=== PATIENT | female | born 1940 | race Hispanic/Latino ===

== ENCOUNTER → 2019-03-30 | Outpatient (CLI) | payer MEDICARE | END | disposition home or self-care (01) | LOC: RAH 15:39 | PROVIDERS: ATTEND Family Medicine | DX: I10 Essential (primary) hypertension (principal) | CPT/HCPCS: 71046 ==

== ENCOUNTER 2019-05-16 13:24 | Emergency (ER) | payer MEDICARE | END 2019-05-16 15:52 | disposition home or self-care (01) | LOC: EDH 13:24 | DX: S16.1XXA Strain of muscle, fascia and tendon at neck level, initial encounter (principal); I10 Essential (primary) hypertension; E11.9 Type 2 diabetes mellitus without complications; M19.90 Unspecified osteoarthritis, unspecified site; Z98.890 Other specified postprocedural states; S40.012A Contusion of left shoulder, initial encounter; V49.59XA Passenger injured in collision with other motor vehicles in traffic accident, initial encounter; Y93.89 Activity, other specified; Y92.410 Unspecified street and highway as the place of occurrence of the external cause; Y99.8 Other external cause status | CPT/HCPCS: 70450; 72125; 72128; 72131; 73030 ==

== ENCOUNTER → 2021-11-13 | Outpatient (CLI) | payer OTHER, MEDICARE ==
[~2021-11-13] MED LIST: LIDOCAINE HCL MPF 1% 5ML VIAL ONE
[2021-11-13 08:46] LABS: PROTHROMBIN TIME 10.9 SEC (9.6-11.6)
[2021-11-13 08:47] LABS: PARTIAL THROMBOPLASTIN TIME 27.4 SEC (26.3-35.5)
== END | disposition home or self-care (01) ==
LOC: RAH 07:45
PROVIDERS: ATTEND Otolaryngology
DX: E04.1 Nontoxic single thyroid nodule (principal); Z79.01 Long term (current) use of anticoagulants; Z79.899 Other long term (current) drug therapy
CPT/HCPCS: 10005; 36415; 85610; 85730; 88173; 88305; J3490 ×2

== ENCOUNTER → 2022-05-14 | Outpatient (CLI) | payer OTHER, MEDICARE | END | disposition home or self-care (01) | LOC: RAH 10:50 | PROVIDERS: ATTEND Otolaryngology | DX: E07.89 Other specified disorders of thyroid (principal); E04.1 Nontoxic single thyroid nodule | CPT/HCPCS: 76536 ==

== ENCOUNTER → 2025-02-18 | Outpatient (CLI) | payer OTHER, MEDICAID ==
--- NOTE | 2025-02-18 16:41 | HMCIMG ---
US THYROID/NECK HISTORY: Thyroid nodule COMPARISON: 05/14/2022 TECHNIQUE: Thyroid ultrasound study was performed. FINDINGS: Right thyroid lobe measures 4.2 x 1.3 x 1.4 cm. Left thyroid lobe measures 4 x 1.3 x 1.3 cm. There are bilateral thyroid nodules with the largest in the right lower pole measuring 2.3 x 2.2 x 2.3 cm not seen on previous study. There is left thyroid calcified nodule measuring 10 x 23 mm. Other bilateral subcentimeter thyroid nodules are again seen. IMPRESSION: 1. ) Right lower pole thyroid nodule measuring 2.3 x 2.2 x 2.3 cm not seen on previous study.
== END | disposition home or self-care (01) ==
LOC: RAH 15:10
PROVIDERS: ATTEND Student in an Organized Health Care Education/Training Program
DX: E04.2 Nontoxic multinodular goiter (principal)
CPT/HCPCS: 76536

== ENCOUNTER → 2025-06-29 | Outpatient (CLI) | payer OTHER, MEDICAID ==
[2025-06-29 10:02] LABS: INR <= 0.93 (0.85-1.15)
--- NOTE | 2025-06-29 11:45 | NUR ---
U/S GD BILATERAL THYROID FNA PROCEDURE PERFORMED BY DR Edda GILBERT. FIRST PUNCTURE SITE LT NECK. TWO SAMPLES COLLECTED AND PROCEDURE STOPPED DUE TO CALCIFIED NODULE. SECOND PUNCTURE SITE RT NECK WITH 4 SAMPLES COLLECTED. PATIENT TOLERATED PROCEDURE WELL. SPECIMEN X 6 COLLECTED AND SENT TO LAB. END OF PROCEDURE AT 1110. ASPIRATION NEEDLES REMOVED AND DRESSING APPLIED. NO BLEEDING NOTED. DISCHARGE INSTRUCTIONS GIVEN TO PATIENT AND VERBALIZED UNDERSTANDING. DISCHARGED VIA AMBULATION AT 1145. COLD PACK APPLIES TO PUNCTURE SITES. AAO X3 WITH NO C/O PAIN.
--- NOTE | 2025-06-30 08:53 | HMCIMG ---
PROCEDURE: Ultrasound-guided right and left thyroid lobe thyroid nodule fine needle aspiration; dated 06/29/2025 INDICATION: Right and left thyroid nodule nodules. STAFF: Sylwia RESIDENT: GASPER Reynolds ANESTHESIA: Local, 1% lidocaine plain FINDINGS: Informed consent was obtained. Patient was placed in the supine position prepped and draped in the usual sterile fashion. Under ultrasound guidance, the right thyroid nodule was localized. Local anesthetic was applied using 1% plain lidocaine. The nodule measured 2.3 x 2.2 x 2.3 cm maximum dimensions and appears heterogeneously heterogeneous. Fine needle aspiration using coaxial technique with an 18 gauge introducer needle and a 22-gauge aspiration needle was performed under ultrasound guidance. 4 passes were made and reviewed directly by the pathology tech, who confirmed adequate cytology. The patient tolerated the procedure well. SPECIMEN: 4 FNA passes, reviewed by pathology collector Under ultrasound guidance, the left thyroid nodule was localized. Local anesthetic was applied using 1% plain lidocaine. The nodule measured 1.0 x 2.3 cm calcified maximum dimensions and appears heterogeneously heterogeneous. Fine needle aspiration using coaxial technique with an 18 gauge introducer needle and a 22-gauge aspiration needle was performed under ultrasound guidance. 4 passes were made and reviewed directly by the pathology tech, who confirmed adequate cytology. The patient tolerated the procedure well. SPECIMEN: 4 FNA passes, reviewed by pathology collector COMPLICATIONS: None. EBL: Minimal. IMPRESSION: Status post ultrasound-guided of both right and left thyroid nodule fine needle aspiration, sent to pathology for further evaluation. I was present for the procedure and I have reviewed the images and I agree with the findings and conclusions reported above.
== END ==
LOC: RAH 08:53
PROVIDERS: ATTEND Internal Medicine
DX: E04.2 Nontoxic multinodular goiter (principal); E03.9 Hypothyroidism, unspecified; M19.90 Unspecified osteoarthritis, unspecified site; M81.0 Age-related osteoporosis without current pathological fracture; E21.0 Primary hyperparathyroidism; E78.5 Hyperlipidemia, unspecified; Z79.01 Long term (current) use of anticoagulants; Z98.890 Other specified postprocedural states; Z79.899 Other long term (current) drug therapy; Z68.30 Body mass index [BMI] 30.0-30.9, adult
CPT/HCPCS: 10005; 10006; 36415; 76942; 85610; 85730; 88173; 88305